=== PATIENT | female | born 1975 | race Caucasian/White ===

== ENCOUNTER 2019-12-17 07:46 | Emergency (ER) | payer SELFPAY ==
[~2019-12-17] VITALS: Ht 165.1 cm; Wt 52.2 kg
== END 2019-12-17 09:45 | disposition home or self-care (01) ==
LOC: ED 07:46
DX: S42.032A Displaced fracture of lateral end of left clavicle, initial encounter for closed fracture (principal); F17.200 Nicotine dependence, unspecified, uncomplicated; W10.9XXA Fall (on) (from) unspecified stairs and steps, initial encounter; Y93.01 Activity, walking, marching and hiking; Y92.098 Other place in other non-institutional residence as the place of occurrence of the external cause; Y99.8 Other external cause status

== ENCOUNTER 2020-07-07 21:50 | Emergency (ER) | payer SELFPAY ==
[~2020-07-07] VITALS: Ht 165.1 cm; Wt 52.2 kg
[2020-07-08] MEDS ORDERED: ANTIBIOTIC28.4 GM T (10:10)
[2020-07-08] MEDS ORDERED: SEPTDS PO (10:10)
== END 2020-07-07 23:30 | disposition left against medical advice (07) ==
LOC: ED 21:50
DX: S01.111A Laceration without foreign body of right eyelid and periocular area, initial encounter (principal); X58.XXXA Exposure to other specified factors, initial encounter; Y93.89 Activity, other specified; Y92.89 Other specified places as the place of occurrence of the external cause; Y99.8 Other external cause status

== ENCOUNTER 2020-07-08 08:52 | Emergency (ER) | payer SELFPAY ==
[~2020-07-08] VITALS: Wt 54.4 kg
[2020-07-08] MEDS ORDERED: SEPTDS PO (10:10)
[2020-07-08] MEDS ORDERED: ANTIBIOTIC28.4 GM T (10:10)
== END 2020-07-08 10:43 | disposition home or self-care (01) ==
LOC: ED 08:52
DX: S01.81XA Laceration without foreign body of other part of head, initial encounter (principal); F17.200 Nicotine dependence, unspecified, uncomplicated; X58.XXXA Exposure to other specified factors, initial encounter; Y93.89 Activity, other specified; Y92.89 Other specified places as the place of occurrence of the external cause; Y99.8 Other external cause status

== ENCOUNTER 2020-11-07 09:50 | Emergency (ER) | payer SELFPAY ==
[~2020-11-07] VITALS: Ht 165.1 cm; Wt 52.2 kg
[~2020-11-07 09:50] MED LIST: ANTIBIOTIC28.4 GM T; SEPTDS PO
== END 2020-11-07 10:24 | disposition home or self-care (01) ==
LOC: ED 09:50
DX: J32.9 Chronic sinusitis, unspecified (principal); H92.02 Otalgia, left ear; F17.210 Nicotine dependence, cigarettes, uncomplicated; Z20.828 Contact with and (suspected) exposure to other viral communicable diseases

== ENCOUNTER 2023-11-09 10:03 | Emergency (ER) | payer SELFPAY ==
[~2023-11-09] VITALS: Ht 165.1 cm; Wt 50.8 kg
[2023-11-09 11:06] LABS: BASO % 0.3 % (0.0-1.0); EOS % 0.1 % (1.0-4.0); HEMATOCRIT 46.7 % (37.0-47.0); LYMPH # 1.4 10*3/uL (1.3-4.4); LYMPH % 9.8 % (27.0-41.0); MEAN CELL VOLUME 98.1 fl (81.0-99.0); MEAN CORPUSCULAR HGB 31.7 pg (27.0-31.0); MEAN CORPUSCULAR HGB CONC 32.3 g/dl (33.0-37.0); MEAN PLATELET VOLUME 9.1 fl (9.6-12.3); MONO # 0.8 10*3/uL (0.1-1.0); MONO % 5.3 % (3.0-9.0); NEUT # 12.2 10*3/uL (2.3-7.9); PLATELET COUNT AUTOMATED 339 10*3/uL (130-400); RED BLOOD COUNT 4.76 10*6/uL (4.10-5.10); RED CELL DISTRI WIDTH 11.9 % (0-14.5); WHITE BLOOD COUNT 14.6 10*3/uL (4.8-10.8)
[2023-11-09 11:40] LABS: ALKALINE PHOSPHATASE 63 U/L (46-116); BUN 11 mg/dl (9-23); CHLORIDE 107 mmol/L (98-107); LIPASE 42 U/L (12-53); POTASSIUM 4.1 mmol/L (3.4-5.1); TOTAL PROTEIN 7.4 gm/dL (6.0-8.0)
[2023-11-09 11:59] LABS: SGPT/ALT < 7 U/L (5-49)
[2023-11-09] MEDS ORDERED: PEPCID20 MG PO (12:19)
== END 2023-11-09 12:33 | disposition home or self-care (01) ==
LOC: ED 10:03
PROVIDERS: Emergency Medicine
DX: K29.00 Acute gastritis without bleeding (principal); R10.2 Pelvic and perineal pain

== ENCOUNTER 2024-04-27 20:24 | Emergency (ER) | payer SELFPAY ==
[~2024-04-27 20:24] MED LIST changes: +PEPCID20 MG PO
== END 2024-04-27 20:41 | disposition left against medical advice (07) ==
LOC: ED 20:24
DX: R45.851 Suicidal ideations (principal); Z53.29 Procedure and treatment not carried out because of patient's decision for other reasons

== ENCOUNTER 2024-10-14 17:37 | Emergency (ER) | payer SELFPAY ==
[~2024-10-14] VITALS: Ht 165.1 cm; Wt 49.9 kg
== END 2024-10-14 18:02 | disposition home or self-care (01) ==
LOC: ED 17:37
DX: J06.9 Acute upper respiratory infection, unspecified (principal)